=== PATIENT | female | born 1985 | race Caucasian/White ===

== ENCOUNTER 2022-10-31 18:29 | Outpatient (CLI) | payer OTHER, SELFPAY | END 2022-10-31 18:30 | disposition home or self-care (01) | LOC: NFLDREF 18:30 | PROVIDERS: PCP Obstetrics & Gynecology; Visit Provider Physician Assistant | DX: Z01.419 Encounter for gynecological examination (general) (routine) without abnormal findings (principal); Z83.49 Family history of other endocrine, nutritional and metabolic diseases | CPT/HCPCS: 84443 ==

== ENCOUNTER 2025-02-05 15:50 | Outpatient (CLI) | payer OTHER, SELFPAY | END 2025-02-05 15:51 | disposition home or self-care (01) | DX: S61.032A Puncture wound without foreign body of left thumb without damage to nail, initial encounter (principal); W46.0XXA Contact with hypodermic needle, initial encounter; Z11.4 Encounter for screening for human immunodeficiency virus [HIV]; Z11.59 Encounter for screening for other viral diseases; Y99.0 Civilian activity done for income or pay | CPT/HCPCS: 86703; 86803; 87340 ==

== ENCOUNTER 2025-04-16 16:29 | Outpatient (CLI) | payer BC, SELFPAY | END 2025-04-16 16:30 | disposition home or self-care (01) | LOC: NFLDREF 04-22 00:50 | PROVIDERS: Visit Provider Physician Assistant | DX: R30.0 Dysuria (principal); N39.0 Urinary tract infection, site not specified; R10.9 Unspecified abdominal pain | CPT/HCPCS: 87086 ==

== ENCOUNTER 2025-07-02 09:01 | Outpatient (CLI) | payer BC, SELFPAY | END 2025-07-02 09:02 | disposition home or self-care (01) | PROVIDERS: Visit Provider Physician Assistant | DX: Z13.9 Encounter for screening, unspecified (principal) | CPT/HCPCS: 80053; 80061; 84443 ==

== ENCOUNTER 2025-07-23 10:28 | Outpatient (CLI) | payer BC, SELFPAY ==
--- NOTE | 2025-07-23 10:45 | CRLHL7_ITS ---
For Patients: As a result of the Century Cures Act, medical imaging exams and procedure reports are released immediately into your electronic medical record. You may view this report before your referring provider. If you have questions, please contact your health care provider. CLINICAL HISTORY: nausea and vomiting COMPARISON: none TECHNIQUE: Real time jacobo scale imaging and color Doppler analysis was performed of the abdomen. FINDINGS: Sonographic imaging demonstrates normal size and uniform echotexture of the liver. The spleen is of normal size. The pancreas appears normal. The proximal abdominal aorta and IVC appear normal. There is no evidence of ascites. The gallbladder is of normal size and there is no evidence of sludge or stones within the gallbladder lumen. The gallbladder wall measures 1.5 mm in thickness. The common bile duct measures 1.5 mm in size within the livier hepatis. The kidneys appear symmetric. The right kidney measures 10.4 cm in length and the left kidney measures 10.4 cm. There is no evidence of a renal calculus or hydronephrosis. IMPRESSION: Normal abdominal ultrasound. Dictated by Lalo Clements MD @ 07/23/2025 11:59:21 AM (Electronically Signed)
== END 2025-07-23 10:29 | disposition home or self-care (01) ==
LOC: US 10:29
PROVIDERS: Visit Provider Internal Medicine
DX: R11.2 Nausea with vomiting, unspecified (principal)
CPT/HCPCS: 76700